=== PATIENT | male | born 1950 | race Caucasian/White ===

== ENCOUNTER → 2017-09-13 | Outpatient (CLI) | payer MEDICARE, BC | LOC: COL.RAD 10:27 | DX: M25.512 Pain in left shoulder (principal) | CPT/HCPCS: J3301; Q9967 ==

== ENCOUNTER 2018-06-30 13:52 | Outpatient (CLI) | payer MEDICARE, BC ==
[~2018-06-30 13:52] MED LIST: ASPIRIN 81M81 MG/TA2 PO; CEFEPIME2 GM/100 M IV; CIPRO 500MG TA500 MG PO; DIABETA 5MG5 MG/TAB PO; FLOMAX 0.40.4 MG/CAP PO; GLUCOPHAGE1000 MG PO; LIPITOR20 MG PO; NAPROSYN500 MG PO; NORVASC 5MG5 MG/TAB PO; PRINIVIL40 MG PO; ULTRAM 50MG TAB50 MG PO; VITAMIN D 1001000 IU; ZYRTEC 10MG10 MG PO
[2018-06-30 14:23] VITALS: BP 159/63; PULSE 92; TEMP 97.7
== END 2018-06-30 14:29 | disposition home or self-care (01) ==
LOC: EUO 13:52
DX: E11.9 Type 2 diabetes mellitus without complications (principal); E87.1 Hypo-osmolality and hyponatremia; I10 Essential (primary) hypertension; M86.8X4 Other osteomyelitis, hand; B96.5 Pseudomonas (aeruginosa) (mallei) (pseudomallei) as the cause of diseases classified elsewhere; Z79.899 Other long term (current) drug therapy